=== PATIENT | male | born 1960 | race Caucasian/White ===

== ENCOUNTER → 2019-04-28 09:13 | Outpatient (CLI) | payer OTHER, SELFPAY ==
--- NOTE | ~2019-04-28 | CT_ITS ---
EXAMINATION: CT abdomen pelvis wo/w con DATE: 04/28/2019 10:04 INDICATION: Microscopic hematuria. History of kidney stones. TECHNIQUE: Computed tomography (CT) of the abdomen and pelvis was performed without and subsequently with 130 cc Omnipaque 350 intravenous contrast. Automated exposure control and iterative reconstructi on technique were employed. Exam dose: 1537.87 mGy-cm total exam DLP. COMPARISON: 04/28/2019 KUB FINDINGS: There is mild discoid scarring at the left base, left lower lobe. No infiltrate or consolid ation at the lung bases. Normal heart size. No pericardial or pleural effusion. Small sliding hiatal hernia. Multiple bilateral nonobstructing kidney stones are noted, more numerous and larger on the left, stag horn mid-upper left renal calculus measuring up to 12.7 x 16 x 22.7 mm dimension, with 1520 Hounsfiel d unit density measurement. The largest calculus on the right measures up to approximately 7 mm dimen clement. 2.2 cm exophytic upper pole left renal cyst. Approximately 1.4 cm hyperdense (approximately 80 Hounsfield unit) lower pole left renal probable cys t. A couple smaller renal cysts are suggested on each side. Rounded 9.7 mm calculus and two approximately 3 mm calculi in the dependent aspect of the urinary jumana dder , one of the approximately 3 mm calculi situated near the left ureterovesical junction with patient i n the dependent but not apparently in prone position. No urinary bladder wall thickening. Normal caliber of the abdominal aorta with minimal calcification. No intraperitoneal or retroperitone al or pelvic mass lesion or adenopathy or ascites. Probable prior right inguinal herniorrhaphy. There is a prominent amount of fecal material throughout the colon. There is mild colonic diverticulo sis. No CT evidence of diverticulitis. Normal appendix. No bowel obstruction or intraperitoneal free air. Prostate enlargement. Included skeletal structures are unremarkable. No suspicious osteolytic or osteoblastic lesions are i dentified. Normal caliber and minimal atherosclerotic calcification of the abdominal aorta. No intraperitoneal or retroperitoneal or pelvic mass lesion or adenopathy or ascites is detected. Small fat-containing umbilical hernia. IMPRESSION: Bilateral nonobstructive nephrolithiasis Bilateral renal cysts Small sliding hiatal hernia Reviewed, dictated and finalized at [facility]. Reviewed, dictated and finalized at location B. WORKER
--- NOTE | ~2019-04-28 | XR_ITS ---
EXAMINATION: XR abdomen/kub 1V DATE: 04/28/2019 10:12 INDICATION: Macroscopic hematuria TECHNIQUE: A supine view of the abdomen on 2 radiographs was obtained. COMPARISON: CT dated 04/28/2019 and KUB dated 12/06/2016 FINDINGS: Multiple stones in both kidneys. The largest stone/cluster of stones is at the left renal hilum measu ring 2.2 x 1.3 cm and with the largest stone at the right renal hilum measuring 6 mm. There are coupl e stones projecting over the bladder which on the subsequent CT appear mobile within the bladder medina sition from the posterior to the anterior bladder with prone imaging. Small phlebolith in the right h emipelvis. No stones seen along the course of ureters. Normal bowel gas pattern. Lung bases are clear . IMPRESSION: 1. Bilateral nephrolithiasis and bladder stones. Reviewed, dictated and finalized at location A. 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
[2019-04-28 09:44] LABS: Blood Urea Nitrogen 18 mg/dL (8-26); Estimated Glomerular Filt Rate > 60
== END ==
PROVIDERS: PCP Family Medicine; Visit Provider Urology
DX: N20.0 Calculus of kidney (principal); N21.0 Calculus in bladder; N28.1 Cyst of kidney, acquired; K44.9 Diaphragmatic hernia without obstruction or gangrene; R31.29 Other microscopic hematuria
CPT/HCPCS: 74018; 74178; Q9967

== ENCOUNTER → 2019-10-14 11:37 | Outpatient (CLI) | payer OTHER, SELFPAY ==
--- NOTE | ~2019-10-14 | XR_ITS ---
EXAMINATION: XR abdomen/kub 1V EXAM DATE: 10/14/2019 12:02 INDICATION: Kidney stone follow-up. TECHNIQUE: Frontal projection(s) of the abdomen for interpretation. Comparison is made to prior exami nation from 04/28/2019. FINDINGS: Sizable left calyceal stone or stones, region measuring up to 2 cm. On the right there is a 7 mm stone identified. 2 pelvic calcifications larger 1 cm in size have switched sides, could be mo bile bladder stones. Nonobstructive bowel gas pattern. Lung bases are clear. There is no organomegaly . There are mild bony degenerative changes. IMPRESSION: Persistent bilateral nephrolithiasis, probable bladder stones. Reviewed, dictated and finalized at location A.
== END ==
PROVIDERS: Visit Provider Urology
DX: N20.0 Calculus of kidney (principal)
CPT/HCPCS: 74018

== ENCOUNTER 2020-04-13 02:20 | Outpatient (CLI) | payer OTHER, SELFPAY ==
[2020-04-13 18:38] LABS: SARS-CoV-2 RNA PCR Negative
== END 2020-04-13 02:21 | disposition home or self-care (01) ==
LOC: ANHCOVIDDT 02:22
PROVIDERS: Visit Provider Urology
DX: Z01.812 Encounter for preprocedural laboratory examination (principal); Z20.822 Contact with and (suspected) exposure to COVID-19
CPT/HCPCS: C9803; U0003; U0005

== ENCOUNTER 2020-04-13 11:57 | Outpatient (CLI) | payer OTHER, SELFPAY ==
[2020-04-13 12:26] LABS: INR 0.9; Prothrombin Time 12.4 Seconds (11.1-14.7)
[2020-04-13 12:27] LABS: Partial Thromboplastin Time 26.1 SECONDS (22.3-36.8)
[2020-04-13 12:31] LABS: Anion Gap 5 mmol/L (8-16); Blood Urea Nitrogen 17 mg/dL (9-20); Calcium 9.4 mg/dL (8.4-10.2); Carbon Dioxide 35 mmol/L (22-30); Chloride 98 mmol/L (98-107); Estimated Glomerular Filt Rate > 60; Glucose 94 mg/dL (75-110); Potassium 3.4 mmol/L (3.4-5.0); Sodium 138 mmol/L (137-145)
== END 2020-04-13 11:58 | disposition home or self-care (01) ==
LOC: ANHSURGERY 12:00
PROVIDERS: Anesthesiology; PCP Family Medicine; Visit Provider Urology
DX: N20.0 Calculus of kidney (principal); Z79.899 Other long term (current) drug therapy; Z01.818 Encounter for other preprocedural examination
CPT/HCPCS: 36415; 80048; 85610; 85730; 87086; 87186

== ENCOUNTER 2020-04-16 00:46 | Day surgery (SDC) | payer OTHER, SELFPAY ==
[2020-04-12 08:47] VITALS: BMI 26.6
[2020-04-16] VITALS (7 sets, daily range): BP systolic 119–137; BP diastolic 68–83; PULSE 68–80; RESP 10–16; TEMP 36.3–36.9; O2SAT 97–100; BMI 27.6
--- NOTE | ~2020-04-16 | XR_ITS ---
EXAMINATION: XR abdomen/kub 1V EXAM DATE: 04/16/2020 06:11 INDICATION: Lithotripsy, bilateral kidney stones. TECHNIQUE: Frontal projection(s) of the abdomen for interpretation. Comparison is made to prior exami nation from 10/14/2019. FINDINGS: There is large left mid calyceal nephrolithiasis, several smaller inferior calyceal stones . There is about 6 mm right mid calyceal nephrolithiasis. In the pelvis on prior study there is a lar ge right-sided pelvic density which is no longer present. Otherwise, findings appear not significantl y changed. Moderate amount of colonic stool. There are mild bony degenerative changes. IMPRESSION: Bilateral nephrolithiasis. Reviewed, dictated and finalized at location A. 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
[2020-04-16] MEDS: LACTATED RINGERS 1,000 ML 30 ML IV CONT (07:04)
--- NOTE | 2020-04-16 07:12 | WPDANESEPPF ---
Anes - Initial Pre Proc Eval Procedure: Operation Date: 04/16/20 07:30 Proposed Procedures p Right Renal Extracorporeal Shock Wave Lithotripsy - Greg Howell MD Date/Time: 04/16/20 07:12 Surgeon: Greg Howell MD Pre Op Diagnosis: Right Renal Stone Patient Data Age: 59 Gender: M Height: 5 ft 8 in Weight: 79.54 kg Allergies Allergy/AdvReac Type Severity Reaction Status Date / Time No Known Allergies Allergy Verified 04/16/20 07:07 Home Medications Medication Instructions Recorded Confirmed Type ascorbic acid (vitamin C) [Vitamin 1 tablet PO DAILY 04/12/20 04/16/20 History C] aspirin [Aspirin Low-Strength] 81 mg PO DAILY 04/12/20 04/16/20 History hydrochlorothiazide 25 mg DAILY 04/12/20 04/16/20 History magnesium 200 mg PO DAILY 04/12/20 04/16/20 History zinc 50 mg PO DAILY 04/12/20 04/16/20 History Patient hx anesthesia problems: none Family hx anesthesia problems: none [facility] Family History Family History (Updated 12/10/17 @ 09:03 by DOCTOR UNKNOWN) Mother Diabetes mellitus Hypertension Social History Social History Smoking status: Never smoker Second hand tobacco smoke exposure: No Alcohol intake: never Substance use: never Substance use type: does not use Living arrangements: with family Spiritual care concerns: No Anes - Eval Final PreProcedure Day of Procedure 04/16/20 07:12 Patient weight: overweight Heart: regular rate and rhythm Lungs: clear to auscultation Airway: Mallampati scale class II Neurological: alert and oriented Last oral intake: >/= 8 hours ASA classification: II Emergent: no Anesthetic plan: proceed Anesthesia type and monitoring: general LMA and standard monitoring Informed Consent: The patient's anesthetic plan and its attendant risks and benefits were discussed with the patient/family/POA. Questions were solicited and answers provided to the satisfaction of the patient/family/POA.
--- NOTE | 2020-04-16 07:21 | WPDHPUPDATE1 ---
History and Physical Update Update Date/Time: 04/16/20 07:21 History and Physical has been reviewed, including an updated exam of the patient. There are NO changes in the patient's condition. Risks, benefits, and alternatives have been discussed and questions answered. Patient agrees to proceed with procedure.
[2020-04-16] MEDS: ceFAZolin 2 GM/D5W 50 ML 2 GM/50 ML BAG IVPB (07:27)
--- NOTE | 2020-04-16 08:11 | PM.PROC ---
Procedure Note - Detailed Date of procedure: 04/16/20 Pre-op diagnosis: Right Renal Stone Post-op diagnosis: same Procedure performed: ESWL right renal calculus 1 cm Description of procedure: Patient is taken to the operative suite and correctly identified. Once anesthesia was obtained the stone was localized in both planes. Patient had some ectopy and thus required gating. Two thousand five hundred shocks were then given to the stone. There appeared to be good fragmentation. Patient is taken recovery room stable condition. S given the standard post litho instruction will follow up in about 10 days with KUB. Anesthesia: GLMA Surgeon: Greg Howell MD Drains: No Packing: No Pathology: none sent Complications: No immediate complications Condition: stable Disposition: PACU
== END 2020-04-16 09:41 | disposition home or self-care (01) ==
PROVIDERS: PCP Family Medicine; Visit Provider Urology
PROC: (CPT 50590; principal; 2020-04-16 07:30)
DX: N20.0 Calculus of kidney (principal)
CPT/HCPCS: 50590; 36415; 74018; 80048; 85610; 85730; 87077; 87086; 87088; 87186; C9803; J0690; J1100; J2250; J2405; J2704; J3010; J7120; U0003; U0005

== ENCOUNTER → 2020-04-23 06:59 | Outpatient (CLI) | payer OTHER, SELFPAY ==
--- NOTE | ~2020-04-23 | XR_ITS ---
XR abdomen/kub 1V DATE: 04/23/2020 07:23 INDICATION: Kidney calculus TECHNIQUE: AP projection, 2 views COMPARISON: 04/16/2020 KUB FINDINGS: Numerous left renal calcified calculi appears stable since 04/16/2020 Calcified calculus overlying the right kidney on 04/16/2020 is no longer evident. No calcified uretera l stones are identified. There is a prominent amount fecal material in the colon. No bowel obstructio n is evident. Distortion of intact. No visceromegaly is evident. IMPRESSION: Interval resolution of calcified density overlying the right kidney since 04/16/2020 Multiple persistent left renal calcified calculi Reviewed, dictated and finalized at Location A. 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
== END ==
PROVIDERS: Visit Provider Urology
DX: N20.0 Calculus of kidney (principal)
CPT/HCPCS: 74018

== ENCOUNTER → 2021-11-01 07:08 | Outpatient (CLI) | payer OTHER, SELFPAY ==
--- NOTE | ~2021-11-01 | XR_ITS ---
XR abdomen/kub 1V DATE: 11/01/2021 07:29 INDICATION: Kidney calculus TECHNIQUE: AP ejection, 2 views COMPARISON: 04/23/2020 KUB FINDINGS: Numerous left renal calcifications are again identified, appearing relatively stable since 04/23/2020. No visceromegaly is evident. The psoas shadows are intact. No evidence of bowel obstruction. The lung bases are clear. Normal heart size. Included skeletal structures are unremarkable. IMPRESSION: Relatively stable multiple left renal calcified calculi since 04/23/2020 Reviewed, dictated and finalized at Location A. Reviewed, dictated and finalized at location B. IMPRESSION: Relatively stable multiple left renal calcified calculi since 2020
== END ==
PROVIDERS: Visit Provider Nurse Practitioner Adult Health
DX: N20.0 Calculus of kidney (principal)
CPT/HCPCS: 74018

== ENCOUNTER → 2022-02-01 08:58 | Outpatient (CLI) | payer OTHER, SELFPAY ==
--- NOTE | ~2022-02-01 | US_ITS ---
EXAMINATION: US abdomen complete DATE: 02/01/2022 09:37 INDICATION: R10.13 - Epigastric pain TECHNIQUE: Multiple grayscale and Doppler ultrasound images of the abdomen were obtained. COMPARISON: X-ray abdomen 11/01/2021, CT abdomen and pelvis 04/28/2019. FINDINGS: The visualized portions of the pancreas are normal. The liver is enlarged with increased ec hogenicity and heterogeneous echotexture. Surface nodularity is present. Normal hepatopetal flow in t he main portal vein. Cholelithiasis. Gallbladder wall thickening, a nonspecific finding in the settin g of chronic liver disease No pericholecystic fluid. The common bile duct measures 5 mm. There was no sonographic [place] sign. The visualized portions of the aorta are normal. Distal aorta not well visu alized. Flattened IVC. The right kidney measures 12.7 x 7.1 x 6.1 cm. The left kidney measures 13.2 x 5.9 x 5.6 cm. The kidn eys demonstrate slightly increased parenchymal echogenicity. Bilateral renal calculi. 2.2 cm exophyti c simple left upper pole renal cyst. 1.6 cm left lower pole hemorrhagic cyst. [place] anechoic area in the left upper pole likely representing another simple cyst or chronically dilated calyx. There is n o hydronephrosis. The spleen is normal in appearance and measures 10.4 cm. IMPRESSION: Hepatomegaly. Cirrhosis. Echogenic liver, most commonly due to steatosis but also can be seen with he patitis and fibrosis. Cholelithiasis. Nonspecific gallbladder wall thickening. Flattened IVC which ca n be seen with hypovolemia and dehydration. Medical renal disease. Bilateral nephrolithiasis. Simple and hemorrhagic left renal cysts. Reviewed, dictated and finalized at location K. 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 Cirrhosis. Echogenic liver, most commonly due to steatosis but al so can be seen with hepatitis and fibrosis. Cholelithiasis. Nonspecific gallbla dder wall thickening. Flattened IVC which can be seen with hypovolemia and dehy dration. Medical renal disease. Bilateral nephrolithiasis. Simple and hemorrhag ic left renal cysts.
== END ==
PROVIDERS: PCP Emergency Medicine; Visit Provider Emergency Medicine
DX: R10.13 Epigastric pain (principal); K74.69 Other cirrhosis of liver
CPT/HCPCS: 76700

== ENCOUNTER 2022-02-21 02:20 | Day surgery (SDC) | payer OTHER, SELFPAY ==
[2022-02-07 09:52] VITALS: BMI 26.8
[2022-02-21 06:28] VITALS: BP 153/84; PULSE 92; RESP 18; TEMP 36.4; O2SAT 98
[2022-02-21] MEDS: LACTATED RINGERS 1,000 ML 150 ML IV CONT (06:37)
--- NOTE | 2022-02-21 07:08 | WPDANESEPPF ---
Anes - Initial Pre Proc Eval Procedure: Operation Date: 02/21/22 07:30 Proposed Procedures p Esophagogastroduodenoscopy EGD - Himanshu Boyer MD Date/Time: 02/21/22 07:08 Surgeon: Himanshu Boyer MD Pre Op Diagnosis: epigastric pain Patient Data Age: 61 Gender: M Height: 1.73 m Weight: 76.9 kg Last Vital Signs Temp 36.4 C 02/21/22 06:28 Pulse 92 02/21/22 06:28 Resp 18 02/21/22 06:28 BP 153/84 H 02/21/22 06:28 Pulse Ox 98 02/21/22 06:28 O2 Del Method Room Air 02/21/22 06:28 Allergies Allergy/AdvReac Type Severity Reaction Status Date / Time No Known Allergies Allergy Verified 02/21/22 06:26 Home Medications Medication Instructions Recorded Confirmed Type hydrochlorothiazide 25 mg tablet 25 mg DAILY 04/12/20 02/21/22 History alprazolam 0.5 mg tablet 0.5 mg PO BID #90 tabs 12/12/21 02/21/22 Rx tramadol 50 mg tablet 50 mg PO Q12H PRN pain #10 tabs 02/03/22 02/07/22 Rx pantoprazole 40 mg tablet,delayed 40 mg PO QAM 8 weeks #56 tabs 02/20/22 02/21/22 Rx release Patient hx anesthesia problems: none Family hx anesthesia problems: none Results Review: All pre-operative results and documents have been reviewed as part of the pre-operative evaluation. [facility] Past Medical History Medical History Kidney stone Family History Family History Mother Diabetes mellitus Hypertension Depression Social History Social History Smoking status: Smoker, status unknown Tobacco type: cigars Second hand tobacco smoke exposure: No Alcohol intake: never Substance use: never Substance use type: does not use Living arrangements: with family Spiritual care concerns: No Anes - Eval Final PreProcedure Day of Procedure 02/21/22 07:08 Patient weight: normal Heart: regular rate and rhythm Lungs: clear to auscultation Airway: Mallampati scale class II Neurological: alert and oriented Last oral intake: >/= 8 hours ASA classification: II Emergent: no Anesthetic plan: proceed Anesthesia type and monitoring: general GIVS and standard monitoring Results Review: All pre-operative results and documents have been reviewed as part of the pre-operative evaluation. Informed Consent: The patient's anesthetic plan and its attendant risks and benefits were discussed with the patient/family/POA. Questions were solicited and answers provided to the satisfaction of the patient/family/POA.
--- NOTE | 2022-02-21 07:38 | PM.HPGS ---
History of Present Illness History of Present Illness Consent: Risks, benefits, and alternatives have been discussed and questions answered. Patient agrees to proceed with procedure. Chief complaint: epigastric pain Narrative: Himanshu Kelley is a 61 year old male Presents for EGD. Patient reports rather vague abdominal and back discomfort. Variously described as bloating, belching, epigastric discomfort. On a few occasions occurred after a fatty meal but not consistently. Patient referred for further evaluation. After initial referral patient underwent a gallbladder ultrasound which revealed gallstones. Also a nodular liver was suggested echogenicity on the ultrasound suggested a fatty liver. And question of cirrhosis was entertained. Previous CT scan of the liver 2020 was unremarkable with no evidence of cirrhosis. Patient denies any significant alcohol intake. He has no family history of cirrhosis. He has never been exposed to hepatitis virus that he is aware of and in fact is told his hepatitis serologies were normal. Patient is very concerned about this. Family history is noncontributory. Patient currently on a trial of pantoprazole 40mg p.o. daily which apparently has had no impact on his intermittent discomfort. Review of Systems Review of Systems: Review of systems noncontributory. [facility] Past Medical History Medical History Kidney stone Family History Family History Mother Diabetes mellitus Hypertension Depression Social History Social History Smoking status: Smoker, status unknown Tobacco type: cigars Second hand tobacco smoke exposure: No Alcohol intake: never Substance use: never Substance use type: does not use Living arrangements: with family Spiritual care concerns: No Meds Home Medications and Allergies Home Medications Medication Instructions Recorded Confirmed Type hydrochlorothiazide 25 mg tablet 25 mg DAILY 04/12/20 02/21/22 History alprazolam 0.5 mg tablet 0.5 mg PO BID #90 tabs 12/12/21 02/21/22 Rx tramadol 50 mg tablet 50 mg PO Q12H PRN pain #10 tabs 02/03/22 02/07/22 Rx pantoprazole 40 mg tablet,delayed 40 mg PO QAM 8 weeks #56 tabs 02/20/22 02/21/22 Rx release Allergies Allergy/AdvReac Type Severity Reaction Status Date / Time No Known Allergies Allergy Verified 02/21/22 06:26 Vital Signs Vital Signs - 24 hr 02/21/22 06:28 Temperature 97.6 F Pulse Rate 92 Respiratory Rate 18 Blood Pressure 153/84 H Pulse Oximetry 98 Oxygen Delivery Room Air Exam Narrative: Physical exam reveals patient to be alert. Vital signs stable. HEENT exam is unremarkable. Patient is anicteric. Lungs are clear to auscultation and percussion. Heart is without murmur or extra sounds. Abdomen bowel sounds present soft nontender with no organomegaly. Rectal exam deferred this time. Assessment and Plan Assessment and plan (1) Epigastric pain: Code(s): R10.13 - Epigastric pain Status: Acute Assessment and Plan: Patient with epigastric pain the etiology is somewhat unclear. Poor response to pantoprazole suggest is not acid related. This may be related to the finding of gallstones on ultrasound. Plan for EGD to exclude organic disease of the upper GI tract. We may wish to pursue HIDA scan. EGD will also hopefully exclude varices. (2) Gallstones: Code(s): K80.20 - Calculus of gallbladder without cholecystitis without obstruction Status: Acute Assessment and Plan: Gallstones identified on ultrasound may be the etiology of his discomfort. Plan for HIDA scan to more specifically search for gallbladder dysfunction. If positive then surgical referral if negative then observation. (3) Abnormal ultrasound: Code(s): R93.89 - Abnormal findings on diagnost
[2022-02-21 07:43] VITALS: BP 103/65; PULSE 68; RESP 17; O2SAT 100
[2022-02-21 07:53] VITALS: BP 111/69; PULSE 68; RESP 20; O2SAT 99
[2022-02-21 08:03] VITALS: BP 126/81; PULSE 70; RESP 18; O2SAT 100
== END 2022-02-21 08:15 | disposition home or self-care (01) ==
PROVIDERS: PCP Emergency Medicine; Visit Provider Internal Medicine Gastroenterology
PROC: 0DJ08ZZ Inspection of Upper Intestinal Tract, Via Natural or Artificial Opening Endoscopic (ICD-10-PCS; CPT 43235; principal; 2022-02-21 07:30)
DX: R10.13 Epigastric pain (principal); K80.20 Calculus of gallbladder without cholecystitis without obstruction; R93.89 Abnormal findings on diagnostic imaging of other specified body structures
CPT/HCPCS: 43235; 87081; J2001; J2704; J7120

== ENCOUNTER 2022-03-06 07:34 | Outpatient (CLI) | payer OTHER, SELFPAY ==
--- NOTE | ~2022-03-06 | NM_ITS ---
EXAMINATION: NM hepatobiliary wo pharm DATE: 03/06/2022 12:22 INDICATION: Epigastric pain. Cholelithiasis. COMPARISON: Ultrasound dated 02/11/[address] dated 04/28/2019 TECHNIQUE: 5 mCi Tc-99m mebrofenin (Choletec) was administered intravenously. Scintigraphic images o f the abdomen were obtained for one hour. Additional 4 hour delayed scintigrams were obtained in ante rior and right lateral projections. FINDINGS: There is normal clearance of radiotracer from the blood pool. There is homogeneous tracer u ptake by the liver. Activity progresses to the common bile duct by 10 minutes with activity in the d uodenum at 15 minutes. Duodenum. There is residue increase in bowel activity which partially obscures the delayed accumulation of activity in the gallbladder which is seen on the 4 hour images. There ap pears be some reflux of activity into the stomach on the 4 hour delayed images. IMPRESSION: 1. Delayed accumulation of activity in the gallbladder which can be seen with chronic cholecystitis or recent prior ingestion of food. Reviewed, dictated and finalized at location A. GER BALANCE
== END 2022-03-06 07:35 | disposition home or self-care (01) ==
PROVIDERS: PCP Emergency Medicine; Visit Provider Internal Medicine Gastroenterology
DX: K80.20 Calculus of gallbladder without cholecystitis without obstruction (principal); R10.13 Epigastric pain
CPT/HCPCS: 78226; A9537

== ENCOUNTER 2022-04-05 08:26 | Outpatient (CLI) | payer OTHER, SELFPAY ==
--- NOTE | 2022-04-05 08:30 | ECG_ITS ---
Measurements Intervals [place] Rate: 80 P: AL: 0 QRS: -20 QRSD: 95 T: 87 QT: 299 QTc: 345 Interpretive Statements SINUS RHYTHM BASELINE ARTIFACT- I, II, III, AVR, AVL, AVF NORMAL ECG NO PREVIOUS ECG AVAILABLE FOR COMPARISON Electronically Signed On 04-05-2022 9:00:02 DIVER ASSISTANT by Jaiden Berry D.O.
[2022-04-05 09:10] LABS: Chloride 100 mmol/L (98-107)
[2022-04-05 09:13] LABS: Alanine Aminotransferase 17 U/L (6-50); Albumin Level 4.3 g/dL (3.5-5.1); Alkaline Phosphatase 71 U/L (38-126); Amylase 86 U/L (30-110); Aspartate Amino Transferase 23 U/L (17-59); Bilirubin,Total 0.7 mg/dL (0.2-1.3); Lipase 62 U/L (23-300)
[2022-04-05 09:19] LABS: Anion Gap 4 mmol/L (8-16); Blood Urea Nitrogen 17 mg/dL (9-20); Carbon Dioxide 33 mmol/L (22-30); Estimated Glomerular Filt Rate > 60; Glucose 77 mg/dL (65-110); Potassium 3.3 mmol/L (3.4-5.0); Sodium 137 mmol/L (137-145)
== END 2022-04-05 08:27 | disposition home or self-care (01) ==
PROVIDERS: Anesthesiology; PCP Emergency Medicine; Visit Provider Surgery
DX: K80.10 Calculus of gallbladder with chronic cholecystitis without obstruction (principal); Z79.899 Other long term (current) drug therapy; Z01.818 Encounter for other preprocedural examination
CPT/HCPCS: 36415; 80048; 80076; 82150; 83690; 86850; 86900; 86901; 93005

== ENCOUNTER 2022-04-13 00:40 | Day surgery (SDC) | payer OTHER, SELFPAY ==
[2022-04-04 09:35] VITALS: BMI 26.6
--- NOTE | 2022-04-04 09:39 | PC.NURSE ---
Report to the Outpatient Waiting Room, entrance under the green pavilion located off [facility], at time 6:00 on date 04/13/22. Planned Procedure Time: 7:30. Time changes happen often and if your time is changed the preop area will call you the afternoon before. - You and your visitor will be asked to self-screen and do not enter if you have any COVID symptoms. - Only one visitor is requested with a max of two and NO children visitors are allowed at this time. - The patient visitor may be requested to leave or wait in car when not with patient due to distancing restrictions. - A mask is REQUIRED within the hospital. Patients may have clear liquids (water, carbonated beverages, clear teas, apple juice) until 3 hours prior to surgery with a maximum of 20 ounces. - No food from midnight until time of surgery Take the following medications with a SIP of water the morning of surgery: XANAX IF NEEDED Medications to discontinue per physician: VITAMINS/SUPPLEMENTS Date to take last dose: 04/09/22 Please no make-up, nail lao, hairspray, perfume, deodorant, or body powder the day of surgery. No jewelry (including any body piercings) or valuables the day of surgery, leave them at home. Please take a shower or bath the night before, or the morning of, surgery with an antibacterial soap (HIBICLENS). Wear comfortable, loose fitting clothing. - Jewelry must be removed prior to entering the operating room. Rings and piercings that are not removed may be cut off. - The hospital will not accept responsibility for valuables. - Please leave all valuables, including medications, at home the day of surgery. If you are going home after surgery, a licensed tanker truck driver must drive you home. - NO public transportation without another adult if you receive anesthesia. - We recommend that an adult stay with you for 24 hours following discharge. - We also recommend that you do not drive, make important decision, drink alcoholic beverages, or take any drugs that were not prescribed by your health care provider for at least 24 hours after your discharge time. Follow any additional instructions given to you from your surgeon. If you or anyone in your household have experienced Covid symptoms in the past week, please notify your surgeon or the nurse liaison at the phone number below for possible testing. Telephone instructions given to PT - OSITO DE LA ROSA and asked if any additional questions and then verbalized understanding. Patient advised to call surgeon office or pre surgery nurse liaison [phone] if any additional questions.
--- NOTE | 2022-04-12 12:09 | WPDANESEPPF ---
Anes - Initial Pre Proc Eval Procedure: Operation Date: 04/13/22 07:30 Proposed Procedures p Laparoscopic Cholecystectomy - Samreen Beckford MD Date/Time: 04/12/22 12:09 Surgeon: Samreen Beckford MD Pre Op Diagnosis: Cholecystitis with Stones Patient Data Age: 61 Gender: M Height: 1.7 m Weight: 77.11 kg Allergies Allergy/AdvReac Type Severity Reaction Status Date / Time No Known Allergies Allergy Verified 04/13/22 06:13 Home Medications Medication Instructions Recorded Confirmed Type hydrochlorothiazide 25 mg tablet 25 mg DAILY 04/12/20 04/13/22 History alprazolam 0.5 mg tablet 0.5 mg PO BID #90 tabs 12/12/21 04/13/22 Rx multivitamin 1 tablet PO DAILY 04/04/22 04/13/22 History Patient hx anesthesia problems: none Family hx anesthesia problems: none Results Review: All pre-operative results and documents have been reviewed as part of the pre-operative evaluation. [facility] Past Medical History Medical History (Updated 04/13/22 @ 06:52 by Jose L Mckeon DO) Anxiety Kidney stone takes HCTZ for kidney stones Surgical History Surgical History H/O hernia repair H/O lithotripsy Family History Family History Mother Diabetes mellitus Hypertension Depression Father Hypertension Social History Social History Social History: drinks coffee daily. 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 Informed Consent: The patient's anesthetic plan and its attendant risks and benefits were discussed with the patient/family/POA. Questions were solicited and answers provided to the satisfaction of the patient/family/POA.
[2022-04-13] VITALS (10 sets, daily range): BP systolic 134–159; BP diastolic 68–86; PULSE 61–90; RESP 12–20; TEMP 36.1–36.4; O2SAT 94–100
[2022-04-13] MEDS: ACETAMINOPHEN 500 MG TABLET 1000 MG PO (06:32)
[2022-04-13] MEDS: LACTATED RINGERS 1,000 ML 30 ML IV CONT ×2 (06:35→09:35)
[2022-04-13] MEDS: KETOROLAC 15 MG/ML VIAL (*BKC) IV PUSH (06:37)
--- NOTE | 2022-04-13 07:24 | PM.IMHP ---
H&P: HPI History of Present Illness Date/Time: 04/13/22 07:24 Chief Complaint: chronic cholecystitis Narrative: 61 y/o male presents to office with complaints of RUQ abdominal pain associated with bloating, diarrhea, and weight loss after eating fried foods.He had an episode of bloating & pain after eating fried chicken. The most recent attack happened after eating beans & BBQ. His symptoms began approximately 2-3 mos ago. Abdominal u/s was performed on 02/01/22 which showed hepatomegaly, cirrhosis, cholelithiasis, nonspecific gallbladder wall thickening, common bile duct measures 5 mm. He had EGD performed by Dr. Boyer on 02/21/22 which was normal. HIDA scan was performed on 03/06/22 which showed delayed accumulation of activity in the gallbladder. He doesn't recall having symptoms during the HIDA scan. He has been avoiding fried foods recently. He denies family history for gallbladder disease. [facility], [facility] Review of Systems Review of Systems: All systems reviewed & are unremarkable except as noted in HPI and below PMFSH Past Medical History Medical History Anxiety Kidney stone takes HCTZ for kidney stones Surgical History Surgical History H/O hernia repair H/O lithotripsy Family History Family History Mother Diabetes mellitus Hypertension Depression Father Hypertension Social History Social History Social History: drinks coffee daily. 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 Spiritual care concerns: No Meds Home Medications and Allergies Home Medications Medication Instructions Recorded Confirmed Type hydrochlorothiazide 25 mg tablet 25 mg DAILY 04/12/20 04/13/22 History alprazolam 0.5 mg tablet 0.5 mg PO BID #90 tabs 12/12/21 04/13/22 Rx multivitamin 1 tablet PO DAILY 04/04/22 04/13/22 History Allergies Allergy/AdvReac Type Severity Reaction Status Date / Time No Known Allergies Allergy Verified 04/13/22 06:13 Exam Const: General: cooperative, comfortable and no acute distress Resp: Auscultation: clear to auscultation bilaterally Cardio: Rate: regular rate Rhythm: regular rhythm GI: Inspection: normal to inspection and non-distended GI Palp: No abdominal tenderness, Yes Soft to palpation, No Tenderness to palpation present (GI), No Guarding due to palpation present (GI) and No Rigid due to palpation Assessment and Plan Assessment and plan (1) Chronic cholecystitis with calculus: Code(s): K80.10 - Calculus of gallbladder with chronic cholecystitis without obstruction Status: Acute Assessment and Plan: will setup for lap cholecystectomy
--- NOTE | 2022-04-13 07:25 | WPDHPUPDATE1 ---
History and Physical Update Update Date/Time: 04/13/22 07:25 History and Physical has been reviewed, including an updated exam of the patient. There are NO changes in the patient's condition. Risks, benefits, and alternatives have been discussed and questions answered. Patient agrees to proceed with procedure.
[2022-04-13] MEDS: ceFAZolin 2 GM/D5W 50 ML 2 GM/50 ML BAG IVPB (07:32)
[2022-04-13] MEDS: BUPIVACAINE/EPINEPHRINE 0.5% 30 ML VIAL INFILTRATE (07:48)
--- NOTE | 2022-04-13 08:34 | W.PM.PROC2 ---
Procedure Note - Detailed Date of Procedure 04/13/22 Pre-op Diagnosis Cholecystitis with cholelithiasis Post-op Diagnosis Same Procedure Performed Laparoscopic cholecystectomy Surgeon Samreen Beckford MD Anesthesia General Indications 61-year-old male presented to the office complaining of postprandial right upper quadrant abdominal pain associated with nausea and vomiting. Workup including imaging significant for cholecystitis, cholelithiasis. Findings Cholecystitis with cholelithiasis Description of Procedure The patient was taken to the operating room placed in the supine position. After adequate induction of general anesthesia, the patient was prepped and draped in normal sterile fashion. A time-out was then performed to verify the patient's identity as well as the procedure being performed. I then made a 5 mm incision in the infraumbilical region. Through this, a Veress needle was placed into the peritoneal cavity and CO2 gas was then insufflated. After adequate pneumoperitoneum was achieved, the Veress needle was removed and a 5 mm optiview trocar was placed through this incision under direct visualization. I then placed the laparoscope through this trocar site and under direct visualization placed a further 12 mm subxiphoid port as well as 2 additional 5 mm ports in the right upper abdomen. The gallbladder was then identified and was noted to be inflamed, distended, and full of gallstones. Given the inflammation, the gallbladder was decompressed to allow manipulation. The decompressed bile was noted to be very thick. Once decompressed, I was able to place a grasper at the dome of the gallbladder and this was retracted anterior and cephalad up over the liver. A 2nd retractor was then placed at the infundibulum and retracted laterally, this allowed visualization of the triangle of Calot. I then was able to visualize the cystic duct in its entirety from its proximal insertion into the gallbladder, to its distal junction with the common hepatic/common bile duct junction. At this point, I carefully skeletonized the proximal cystic duct with the [place] dissector. I then clipped and transected the proximal cystic duct. Next I visualized the cystic artery. Again the artery was skeletonized, clipped, and transected. I then used the Bovie cautery to take down the peritoneal attachments of the gallbladder off the liver bed. This was somewhat difficult given the amount of inflammation in the posterior space. Once the gallbladder specimen was completely detached, an endo-pouch was placed through the 12 mm port site. I then placed the gallbladder specimen into the Endo pouch and removed the endo-pouch from the 12 mm port site. Of note, I did have to enlarge the port site to allow extraction. The specimen will now be sent to pathology for further review. I then copiously irrigated the right upper quadrant. Some mild oozing was noted in the liver bed and this was controlled with the bovie cautery. Hemostasis was noted in the liver bed, the clips were noted to be in good position on both the cystic duct stump and the cystic artery stump. No other pathology was noted in the right upper quadrant. I then moved the laparoscope to the subxiphoid port. No iatrogenic injury or other pathology was noted in the lower abdomen. I then closed the 12 mm trocar site under direct visualization using the Jon cone and 0 Vicryl suture. At this point, the abdomen was desufflated and all ports removed. All port sites were then closed with 4.O Monocryl subcuticular sutures. Dermabond was placed on each incision. The patient tolerated the procedure well, was extubated in the operating room postoperative and will be transferred to the recovery room in stable condition Estimated Blood Loss 25 Drains No Packing No Pathology Yes Complications No immediate complications Condition Stable Disposition PACU [facility] Billing Surgery - Charge Forward: Surgery Billing
[2022-04-13] MEDS: fentaNYL CITRATE INJ (*CRX) 100 MCG/2 ML VIAL 25 MCG IV PUSH ×8 (09:11→09:39)
[2022-04-13] MEDS: oxyCODONE HCL (*CRX) 5 MG TAB IR PO (09:57)
== END 2022-04-13 10:59 | disposition home or self-care (01) ==
PROVIDERS: PCP Emergency Medicine; Visit Provider Surgery
PROC: 0FT44ZZ Resection of Gallbladder, Percutaneous Endoscopic Approach (ICD-10-PCS; CPT 47562; principal; 2022-04-13 07:30)
DX: K80.10 Calculus of gallbladder with chronic cholecystitis without obstruction (principal); F41.9 Anxiety disorder, unspecified; F17.290 Nicotine dependence, other tobacco product, uncomplicated
CPT/HCPCS: 47562; 36415; 80048; 80076; 82150; 83690; 86850; 86900; 86901; 88304; 93005; A9270; J0330; J0690; J1100; J1170; J1885; J2250; J2405; J2704; J2710; J3010; J7030; J7120

== ENCOUNTER 2022-06-15 13:17 | Outpatient (CLI) | payer OTHER, SELFPAY | END 2022-06-15 13:18 | disposition home or self-care (01) | LOC: ANHAUDIO 13:18 | PROVIDERS: PCP Emergency Medicine; Visit Provider Otolaryngology | DX: H93.19 Tinnitus, unspecified ear (principal); J31.0 Chronic rhinitis; J34.2 Deviated nasal septum; H90.3 Sensorineural hearing loss, bilateral | CPT/HCPCS: 92557; 92567 ==

== ENCOUNTER 2023-10-31 14:15 | Outpatient (CLI) | payer MEDICARE, SELFPAY ==
[2023-10-31 19:58] LABS: Add Urine Microscopic? YES; Appearance Urine Clear (Clear); Bacteria Urine None Seen /hpf; Bilirubin Urine Negative (Negative); Blood Urine 2+ (Negative); Color Urine Yellow (Yellow); Glucose Urine UA Negative (Negative); Ketones Urine Negative (Negative); Leukocyte Esterase Ur Negative LEU/UL (Negative); Nitrate Urine Negative (Negative); Non Pathogenic Casts 0-2; Protein Urine Negative (Negative); RBC Urine 0-2 /hpf (0-2); Specific Grav Ur 1.005 (1.001-1.035); Squamous Epithelial Cell Urine None Seen /hpf (Few); Urobilinogen Urine 0.2 mg/dL (<2.0); WBC Urine 0-5 /hpf (0-3)
== END 2023-10-31 14:16 | disposition home or self-care (01) ==
LOC: ANHGOSHLAB 14:17
PROVIDERS: PCP Emergency Medicine; Visit Provider Emergency Medicine
DX: R30.0 Dysuria (principal)
CPT/HCPCS: 81001

== ENCOUNTER 2024-02-06 10:34 | Day surgery (SDC) | payer MEDICARE, SELFPAY ==
[2023-12-19 09:22] VITALS: BMI 28.5
--- NOTE | 2024-02-06 06:50 | P.PNAN_ITS ---
Anes - Initial Pre Proc Eval Procedure: Operation Date: 02/06/24 12:30 Proposed Procedures p Diagnostic Colonoscopy - Himanshu Boyer MD Date/Time: 02/06/24 06:50 Surgeon: Himanshu Boyer MD Pre Op Diagnosis: Change in Bowel Habits, Full Incontinence of Feces Patient Data Age: 63 Gender: M Height: 1.71 m Weight: 79.5 kg Allergies Allergy/AdvReac Type Severity Reaction Status Date / Time No Known Allergies Allergy Verified 02/06/24 11:33 Home Medications Medication Instructions Recorded Confirmed Type hydrochlorothiazide 25 mg tablet 25 mg DAILY 04/12/20 02/06/24 History multivitamin 1 tablet PO DAILY 04/04/22 02/06/24 History alprazolam 0.5 mg tablet 0.5 mg PO BID #60 tabs 10/18/23 02/06/24 Rx cholecalciferol (vitamin D3) 25 25 mcg PO DAILY 10/18/23 02/06/24 History mcg (1,000 unit) capsule (Vitamin D3) mecobalamin (vitamin B12) 1,000 1,000 mcg PO DAILY 10/18/23 02/06/24 History mcg chewable tablet zinc acetate 50 mg (zinc) capsule 50 mg PO DAILY 10/18/23 02/06/24 History (Galzin) tamsulosin 0.4 mg capsule (Flomax) 0.4 mg PO DAILY 12/17/23 02/06/24 History Patient hx anesthesia problems: none Family hx anesthesia problems: none Results Review: All pre-operative results and documents have been reviewed as part of the pre- operative evaluation. [facility] Past Medical History Medical History Abnormal ultrasound Anxiety Cholecystitis Chronic cholecystitis with calculus Encounter for surgical aftercare following surgery on the digestive system Epigastric pain Gallstones High frequency hearing loss Kidney stone takes HCTZ for kidney stones Nephrolithiasis Screening for prostate cancer Tinnitus Wellness examination Surgical History Surgical History H/O hernia repair H/O lithotripsy S/P cholecystectomy Family History Family History Mother Diabetes mellitus Hypertension Depression Father Hypertension Social History Social History Social History: drinks coffee daily. 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 Informed Consent: The patient's anesthetic plan and its attendant risks and benefits were discussed with the patient/family/POA. Questions were solicited and answers provided to the satisfaction of the patient/family/POA.
[2024-02-06 11:37] VITALS: BP 157/85; PULSE 101; RESP 18; TEMP 36.7; O2SAT 98; BMI 27.7
[2024-02-06] MEDS: LACTATED RINGERS 1,000 ML 150 ML IV CONT (11:48)
--- NOTE | 2024-02-06 12:02 | PM.HPGS ---
History of Present Illness History of Present Illness Consent: Risks, benefits, and alternatives have been discussed and questions answered. Patient agrees to proceed with procedure. Chief complaint: Anal Seepage Narrative: Himanshu Kelley is a 63 year old male referred for colonoscopy. Patient notes that he will have anal seepage shortly after having a normal bowel movement. Patient denies any pain or bleeding. Family history noncontributory. Patient has been referred for colonoscopy to evaluate more thoroughly. He was given a trial of fiber cereal but was unable to tolerate this because of abdominal cramping. Review of Systems Review of Systems: All systems reviewed & are unremarkable except as noted in HPI and below PMFSH Past Medical History Medical History Abnormal ultrasound Anxiety Cholecystitis Chronic cholecystitis with calculus Encounter for surgical aftercare following surgery on the digestive system Epigastric pain Gallstones High frequency hearing loss Kidney stone takes HCTZ for kidney stones Nephrolithiasis Screening for prostate cancer Tinnitus Wellness examination Surgical History Surgical History H/O hernia repair H/O lithotripsy S/P cholecystectomy Family History Family History Mother Diabetes mellitus Hypertension Depression Father Hypertension Social History Social History Social History: drinks coffee daily. 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 Spiritual care concerns: No Meds Home Medications and Allergies Home Medications Medication Instructions Recorded Confirmed Type hydrochlorothiazide 25 mg tablet 25 mg DAILY 04/12/20 02/06/24 History multivitamin 1 tablet PO DAILY 04/04/22 02/06/24 History alprazolam 0.5 mg tablet 0.5 mg PO BID #60 tabs 10/18/23 02/06/24 Rx cholecalciferol (vitamin D3) 25 25 mcg PO DAILY 10/18/23 02/06/24 History mcg (1,000 unit) capsule (Vitamin D3) mecobalamin (vitamin B12) 1,000 1,000 mcg PO DAILY 10/18/23 02/06/24 History mcg chewable tablet zinc acetate 50 mg (zinc) capsule 50 mg PO DAILY 10/18/23 02/06/24 History (Galzin) tamsulosin 0.4 mg capsule (Flomax) 0.4 mg PO DAILY 12/17/23 02/06/24 History Allergies Allergy/AdvReac Type Severity Reaction Status Date / Time No Known Allergies Allergy Verified 02/06/24 11:33 Vital Signs Vital Signs - 24 hr 02/06/24 11:37 Temperature 98.1 F Pulse Rate 101 H Respiratory Rate 18 Blood Pressure 157/85 H Pulse Oximetry 98 Oxygen Delivery Room Air Exam Narrative: Buccal exam reveals patient signs stable. HEENT exam is unremarkable. Patient is anicteric. Lungs are clear to auscultation and to percussion. Without murmur or extra sounds. Abdomen bowel sounds are present soft nontender with no organomegaly. Digital external rectal exam normal. Assessment and Plan Assessment and plan (1) Fecal incontinence: Qualifiers: Fecal incontinence type: fecal smearing Qualified Code(s): R15.1 - Fecal smearing Code(s): R15.9 - Full incontinence of feces Status: Acute Assessment and Plan: Patient describes anal seepage. Would suggest increasing fiber intake. He is intolerant of bran cereal. Suggest FiberCon 2 tabs p.o. b.i.d.. Colonoscopy has been requested will be performed. Further recommendations may be given after endoscopy. (2) Change in bowel habits: Code(s): R19.4 - Change in bowel habit Status: Acute
[2024-02-06 12:59] VITALS: BP 103/72; PULSE 71; RESP 12; O2SAT 95
[2024-02-06 13:09] VITALS: BP 110/73; PULSE 67; RESP 14; O2SAT 96
[2024-02-06 13:19] VITALS: BP 121/76; PULSE 66; RESP 14; O2SAT 98
--- NOTE | 2024-02-06 13:50 | WPDANESPN ---
Anes - Prog Note Post-Op Date/Time: 02/06/24 13:50 Cardiovascular status: normal Respiratory status: normal Airway patency: baseline Mental status: baseline Post-Op hydration status: normal Vital Signs: Last Vital Signs Temp 36.7 C 02/06/24 11:37 Pulse 66 02/06/24 13:19 Resp 14 02/06/24 13:19 BP 121/76 02/06/24 13:19 Pulse Ox 98 02/06/24 13:19 O2 Del Method Room Air 02/06/24 13:19 Pain Score (VAS): 0 I/O: Intake & Output 02/05/24 02/06/24 02/06/24 23:59 07:59 15:59 Intake Total 200 Balance 200 Post-procedural complaints: none Patient Feedback: Patient satisfied with anesthetic care. Other Findings: Patient vital signs back to baseline. Patient denies nausea and vomiting. Patient's pain under control. Patient OK for discharge.
== END 2024-02-06 13:32 | disposition home or self-care (01) ==
PROVIDERS: PCP Emergency Medicine; Visit Provider Internal Medicine Gastroenterology
PROC: 0DJD8ZZ Inspection of Lower Intestinal Tract, Via Natural or Artificial Opening Endoscopic (ICD-10-PCS; CPT 45378; principal; 2024-02-06 12:30)
DX: K92.9 Disease of digestive system, unspecified (principal); K57.30 Diverticulosis of large intestine without perforation or abscess without bleeding
CPT/HCPCS: 45378

== ENCOUNTER 2024-05-23 09:25 | Emergency (ER) | payer MEDICARE, SELFPAY ==
--- NOTE | 2024-05-23 09:31 | ED.MALEGU ---
HPI - Male Genitourinary General Chief complaint: Urogenital-Male Stated complaint: BURNING URINATION Time Seen by Provider: 05/23/24 09:30 Source: patient Mode of arrival: ambulatory Limitations: no limitations History of Present Illness HPI Narrative: Patient is a 63-year-old male who presents with burning with urination since last night. Patient reports currently has a flu and also had burning with urination. States they read online that the symptom of the flu can be burning with urination. Patient requesting for urine and flu testing. Patient does have history of kidney stones, 2 known on left side. Denies any fever, chills, nausea, vomiting, diarrhea, or flank pain. Related Data Home Medications ?Medication ?Instructions ?Recorded ?Confirmed ?Last Taken ?Type hydrochlorothiazide 25 mg tablet 25 mg PO DAILY 04/12/20 05/23/24 02/05/24 History multivitamin 1 tablet PO DAILY 04/04/22 05/23/24 02/03/24 History cholecalciferol (vitamin D3) 25 25 mcg PO DAILY 10/18/23 05/23/24 02/03/24 History mcg (1,000 unit) capsule (Vitamin D3) mecobalamin (vitamin B12) 1,000 1,000 mcg PO DAILY 10/18/23 05/23/24 02/03/24 History mcg chewable tablet zinc acetate 50 mg (zinc) capsule 50 mg PO DAILY 10/18/23 05/23/24 02/03/24 History (Galzin) tamsulosin 0.4 mg capsule (Flomax) 0.4 mg PO DAILY 12/17/23 05/23/24 02/05/24 History Allergies Allergy/AdvReac Type Severity Reaction Status Date / Time No Known Allergies Allergy Verified 05/23/24 09:34 Review of Systems Review of Systems: All systems reviewed & are unremarkable except as noted in HPI and below Constitutional: Constitutional: Denies chills, Denies fever(s), Denies headache(s), Denies malaise and Denies weakness Eyes: Eyes: Denies change in vision, Denies eye discharge and Denies irritation ENT: Denies otalgia, Denies headache(s), Denies nasal congestion, Denies nasal discharge, Denies sinus pain and Denies sore throat Cardiovascular: Cardiovascular: Denies chest pain, Denies edema, Denies palpitations and Denies dyspnea Respiratory: Respiratory: Denies cough and Denies dyspnea Gastrointestinal: Gastrointestinal: Denies abdominal pain, Denies diarrhea, Denies nausea and Denies vomiting Genitourinary: Genitourinary: Denies hematuria, Reports dysuria, Denies flank pain and Denies urinary urgency Musculoskeletal: Musculoskeletal: Denies back pain and Denies numbness Integumentary/Breasts: Skin/Breast: Denies pruritus and Denies rash Neurologic: Denies headache(s), Denies numbness and Denies weakness Psychiatric: Psychiatric: Reports no additional psychiatric complaints Endocrine: Endocrine: Denies palpitations PMFSH Past Medical History Medical History High frequency hearing loss Tinnitus Encounter for surgical aftercare following surgery on the digestive system Chronic cholecystitis with calculus Cholecystitis Abnormal ultrasound Gallstones Epigastric pain Anxiety Screening for prostate cancer Wellness examination Nephrolithiasis Kidney stone takes HCTZ for kidney stones Surgical History Surgical History S/P cholecystectomy H/O lithotripsy H/O hernia repair Family History Family History Mother Diabetes mellitus Hypertension Depression Father Hypertension Social History Social History Social History: drinks coffee daily. 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 There is no relevant family history pertinent to the presenting complaint. Exam Const: General: cooperative, healthy appearing, comfortable, no acute distress and well nourished Nutritional Appearance: well nourished Orientation/consciousness: patient oriented x3 HENMT: Head: normocephalic and atraumatic Ears: external ears normal Face/Nose/Sinus: Normal external nose present, Normal nares present and normal facial exam Face and sinus: normal facial exam Eyes: General: appearance normal, both eyes and all related structures Pupils: Equal, round and reactive pupils present EOM: EOMs intact bilaterally Neck: Neck: normal visual inspection, full ROM and supple Chest: Chest palpation & inspection: normal inspection of the chest Resp: Effort & Inspection: normal respiratory effort and able to speak in complete sentences Cardio: Rate: regular rate Rhythm: regular rhythm GI: Inspection: normal to inspection GI Palp: No abdominal tenderness and Yes Soft to palpation : General: Yes no CVA tenderness Back/Spine/Pelvis: Back: no CVA tenderness Skin: General skin exam: normal color and no rashes or lesions noted Neuro: General: patient oriented x3 and moves all extremities Cranial nerves: Yes Equal, round and reactive pupils present Extrem: General: normal to inspection and full ROM Psych: Appearance: grossly normal and well kempt Course Course Emergency Course: Patient is aware of diagnosis, understands and agrees to treatment plan. Anticipatory guidance given. Patient agrees to follow-up as directed and is aware of reasons to seek care at the emergency department. Portions of this record may have been created with voice recognition software Level of Care: Express Care Visit Vital Signs Vital signs: Vital Signs Temperature 36.8 C 05/23/24 09:40 Pulse Rate 95 05/23/24 09:40 Respiratory Rate 16 05/23/24 09:40 Blood Pressure 182/92 H 05/23/24 09:40 Pulse Oximetry 98 05/23/24 09:40 Temperature 36.8 C 05/23/24 09:40 Pulse Rate 95 05/23/24 09:40 Respiratory Rate 16 05/23/24 09:40 Blood Pressure 182/92 H 05/23/24 09:40 Pulse Oximetry 98 05/23/24 09:40 Reviewed MDM - Male Genitourinary MDM Narrative Medical decision making narrative: discussed signs and symptoms of worsening kidney infection. Patient states this feels nothing like his previous kidney stones. Patient takes Flomax daily. Patient able to repeat back to go to the emergency department if he has any worsening low back pain, fever, chills, nausea, vomiting, diarrhea. Discussed importance of increasing fluid intake. Pt well hydrated appearing, in no respiratory distress, hemodynamically stable. Recommend supportive care. The patient is stable at time of discharge the clinical impression was discussed and the patient was given the opportunity to ask questions, which were addressed as completely as possible given the information available at present. Anticipatory guidance and return to care precautions were discussed and the importance of primary care follow-up was stressed and encouraged. The patient voiced understanding of the plan, indications to return, and the need for follow-up. Exam findings show no acute concerns or changes Patient is appropriate for outpatient treatment and follow-up. Medical Records Attestation: I reviewed the patient's medical records. Lab Data Attestation: I reviewed the patient's lab results. Labs: Lab Results 05/23/24 Range/Units 10:04 POC Urine Color Dark POC Urine Clarity Clear POC Urine pH 5.5 POC Ur Specif Coden 1.025 POC Urine Protein 2+ (Negative) POC Ur Glucose (UA) Negative (Negative) POC Urine Ketones Negative (Negative) POC Urine Blood 2+ (Negative) POC Urine Nitrite Negative (Negative) POC Urine Bilirubin Negative (Negative) POC Urine Urobilinogen 0.2 POC U Leukocyte Esteras Trace (Negative) POC Influenza A Ag Negative (Negative) POC Influenza B Ag Negative (Negative) Discharge Plan Discharge Clinical Impression: Urinary tract infection Qualifiers: Urinary tract infection type: acute cystitis Hematuria presence: with hematuria Qualified Code(s): N30.01 - Acute cystitis with hematuria Patient Disposition: Home, Self-Care Condition: Stable Instructions: Urinary Tract Infection in Men (ED) Additional Instructions: We will send a urine culture to the lab, based on your symptoms and urine dip we will start treatment today. If culture comes back and bacteria is not susceptible to antibiotic, your prescription may change. Your symptoms should improve within a day of starting antibiotics, but you should finish all the antibiotic pills you get. Otherwise your infection might come back Continue with increased water intake. Take Tylenol or ibuprofen as needed for pain or fever. Follow-up with primary care provider for urine recheck or see ER visit if condition worsens with high fever, nausea, vomiting, severe back pain Your blood pressure was elevated above 120/80 today at Urgent Care. This puts you above the threshold for follow up visit with a primary care provider. High blood pressure does not usually cause any symptoms, however it may lead to kidney failure, stroke, heart disease just to name a few if untreated . Many people are anxious when seeing a provider or nurse. As a result, you are not diagnosed with hypertension at this time unless your blood pressure is persistently high at two office visits at least one week apart. Some things that can help lower blood pressure are lifestyle modifications, such as light exercise, decreased salt in diet, and weight loss. It is important to follow up with a PCP about this within 1 week. Patient Language: Japanese Prescriptions: New cephalexin 500 mg capsule 500 mg PO QID 7 Days Qty: 28 0RF No Action tamsulosin [Flomax] 0.4 mg capsule 0.4 mg PO DAILY Galzin 50 mg (zinc) capsule 50 mg PO DAILY Rx Instructions: take 2-3 times weekly cholecalciferol (vitamin D3) [Vitamin D3] 25 mcg (1,000 unit) capsule 25 mcg PO DAILY mecobalamin (vitamin B12) 1,000 mcg tablet,chewable 1,000 mcg PO DAILY alprazolam 0.5 mg tablet 0.5 mg PO BID Qty: 60 0RF Patient Comments: TAKES PRN hydrochlorothiazide 25 mg tablet 25 mg PO DAILY multivitamin Tablet 1 tablet PO DAILY Follow-up/Referrals: Greg Howell MD [Physician] - 3 Days Time of Disposition: 10:13
[2024-05-23 09:40] VITALS: BP 182/92; PULSE 95; RESP 16; TEMP 36.8; O2SAT 98
[2024-05-23 10:08] LABS: EDINFLUASCREEN Negative (Negative); EDINFLUBSCREEN Negative (Negative); EDUAAPPEAR Clear; EDUABILI Negative (Negative); EDUABLOOD 2+ (Negative); EDUACOLOR1 Dark; EDUAGLUCOSE Negative (Negative); EDUAKETONE Negative (Negative); EDUALEUKO Trace (Negative); EDUANITRATE Negative (Negative); EDUAPH 5.5; EDUAPROTEIN 2+ (Negative); EDUASPGRAVITY 1.025; EDUAUROBILI 0.2
== END 2024-05-23 10:18 | disposition home or self-care (01) ==
PROVIDERS: Emergency Provider Nurse Practitioner Family
DX: N30.01 Acute cystitis with hematuria (principal); Z87.442 Personal history of urinary calculi
CPT/HCPCS: 81003; 87086; 87804; 99213; G0463

== ENCOUNTER 2024-12-24 11:19 | Outpatient (CLI) | payer MEDICARE, SELFPAY ==
--- NOTE | ~2024-12-24 | XR_ITS ---
EXAMINATION: XR knee LT min 4V, 12/24/2024 11:28 CDT HISTORY: Pain in left knee COMPARISON: No comparisons available. Findings: No acute fracture or malalignment. No significant degenerative changes. Soft tissues unremarkable. Impression: No acute fracture or malalignment. Reviewed, dictated and finalized at location P. Impression: No acute fracture or malalignment.
== END 2024-12-24 11:20 | disposition home or self-care (01) ==
LOC: GOSHIMG 11:21
PROVIDERS: PCP Family Medicine; Visit Provider Family Medicine
DX: M25.562 Pain in left knee (principal)
CPT/HCPCS: 73564